=== PATIENT | female | born 2000 | race Caucasian/White ===

== ENCOUNTER 2025-01-11 12:57 | Outpatient (AMB) | payer MEDICAID, SELFPAY ==
[2025-01-11 13:12] VITALS: BP 109/75; PULSE 113; RESP 18; TEMP 36.7; O2SAT 97; BMI 29.9
--- NOTE | 2025-01-11 13:12 | AMB.OBINITIA ---
Vital Signs 01/11/25 13:12 Height 1.65 m Height Method Stated Weight 81.647 kg Weight Measurement Method Standing Scale BMI 29.9 BP 109/75 Blood Pressure Source Automatic Cuff Blood Pressure Location Right Upper Arm Position Sitting Respiration 18 Pulse 113 H Pulse Source Monitor Temp 98.0 F Temp Source Temporal Artery Scan Pulse Oximetry (%) 97 Oxygen Delivery Method Room Air Allergies/Home Meds Allergies & Medications Allergies No Known Allergies Allergy (Verified 01/11/25 13:16) Medication Reconciliation No Known Home Medications 01/11/25 [History Confirmed 01/11/25] Intake Visit Data Collection New Patient or Established: New Patient (never been to [facility]) Reason for Visit:: OBI TRANSFER Seen by Clinical Staff ONLY (RN/MA): No Granular Operator Required: No Do You Feel Safe at Home: Yes Authorities Contacted: N/A PCP or OBGYN visit in last 3 months: No Hx Now: Yes Are you currently on any form of Control: No Pain Present Currently: Yes Pain Location: Back Pain Scale Used: Helms-Eisenberg/Numerical Pain scale:: 5 Smoking Status Smoking Status: Never smoker Immunizations Flu Vaccine in the Last 12 Months: No Flu Vaccine Exclusion Criteria: No Exclusion Criteria Questionnaires Covid-19 Vaccine Questionnaire Has patient been vacinated for Covid-19 Have you been vacinated for Covid-19: No PHQ-9 PHQ-2 Over the last 2 weeks, how often have you been bothered by any of the following problems? 1. Little interest or pleasure in doing things: not at all 2. Feeling down, depressed, or hopeless: not at all Total score: 0 PHQ-9 3. Trouble falling or staying asleep, or sleeping too much: Not at all 4. Feeling tired or having little energy: Not at all 5. Poor appetite or overeating: Not at all 6. Feeling bad about yourself - or that you are a failure or have let yourself or your family down: Not at all 7. Trouble concentrating on things, such as reading the newspaper or watching television: Not at all 8. Moving or speaking so slowly that other people could have noticed? - Or the opposite - being so fidgety or restless that you have been moving around a lot more than usual: not at all 9. Thoughts that you would be better off or of hurting yourself in some way: Not at all Total score: 0 If you checked off any problems, how difficult have these problems made it for you to do your work, take care of things at home, or get along with other people?: not difficult at all Source: Developed by Drs. Umer Mai, Ellen Mckeon, Ray Earl and colleagues, with an educational em from [employer]. Depression screen completed yes Social History Living Situation History Marital Status: Life Partner Lives With: Family Housing: House Tobacco History Smoking Status: Never smoker Second Hand Smoke Exposure: No Alcohol History Alcohol Intake: Never Domestic Abuse History Do You Feel Safe at Home: Yes History of Present Illness HPI Narrative 24-year-old 3 para 2 for OBI. [facility] She [facility]. No LMP. By ultrasound on July 11, 2024 patient was 7 weeks 1 day. Patient was using the Nexplanon when she got . She reports not having any problems with . She is happy about it. O+, antibody screen negative, RPR nonreactive, rubella immune, hepatitis B negative, hep C negative, HIV negative, GC and Chlamydia were negative. Her 1 hour screen negative. Her NIPT and AFP and carrier screens all negative. A1c was 4.7 and drug screen and urine tox were all negative. Patient had another ultrasound at Dr. Valdes's office October 11. She was 28 weeks for and this confirmed EDC of February 26, 2025. Baby was measuring 72nd percentile. OB Initial Visit OB Flowsheet OB Flowsheet Initial Weight: Not Recorded Date <del>?</del> EGA Weight BP Alb Glu CTX Pres Fundal ht FHR Mov Dilation Station Effacement Hx Notes Visit Note 01/11/25 <del>?</del> 33w 3d 81.647 kg 109/75 absent cephalic 33 145 active OB transfer from [facility] with records. Patient is a 24-year-old 3 para 2 at 33-4/7 weeks today. Denies leaking, bleeding, contractions. Reports good movement. She has a follow-up MFM appointment February 05. Follow-up ultrasound with MFM February 05. Discussed labor precautions. GBS next visit. Kick count twice a day. Increase fluids and continue prenatals return 2 weeks OB check Menstrual History Menstrual reliability: unknown OB History : 3 Para: 2 # of Living Children: 2 Delivery History 1st : Child's name: JESSE WESTBROOK date: 08/09/17 sex: female Gestational age at delivery (weeks): 40 Delivery type: vaginal weight (lbs): 4989.516 g History of depression before or after : No 2nd : Child's name: SHE WESTBROOK date: 04/25/19 sex: male Gestational age at delivery (weeks): 40 Delivery type: vaginal weight (lbs): 5443.108 g History of depression before or after : No Infection History & Risk Evaluation History of STDs: none Genetic Screening & History Genetic Screening/Teratology Counseling - Includes patient, baby's father, or anyone in either family with: 1. Patient's age 35 years or older as of estimated date of delivery: No 2. Thalassemia (German, Upper Sorbian, Mediterranean, or Background); MCV less than 80: No 3. Neural Tube Defect (Meningomyelocele, Spina Bifida, or Anencephaly): No 4. Congenital Heart Defect: No 5. Down Syndrome: No 6. Guru-Sachs (Ashkenazi Uatsdin, Cajun, Chinese [employer]): No 7. Sanjay Disease (Ashkenazi Uatsdin): No 8. Familial Dysautonomia (Ashkenazi Uatsdin): No 9. Sickle Cell Disease or Trait (): No 10. Hemophilia or other blood disorders: No 11. Muscular Dystrophy: No 12. Cystic Fibrosis: No 13. Stoneham's Chorea: No 14. Mental Retardation/Autism: No 15. Other inherited genetic or chromosomal disorder: No 16. Maternal Metabolic Disorder (EG,TYPE 1 Diabetes, PKU): No 17. Patient or baby's father had a child with defects not listed above: No 18. Recurrent loss or a stillbirth: No 19. Medications (including supplements, vitamins, herbs or otc drugs)/illicit/recreational drugs/alcohol since last menstrual period: No 20. Any other: No Infection History Other (see comments) Source: [employer] Review of Systems Review of Systems Systems Reviewed: All systems reviewed, normal except as documented Exam General Limitations: no limitations General Appearance: alert, in no apparent distress, comfortable, cooperative, healthy appearing, well developed and well groomed ENT ENT exam: Present normal exam, normal oropharynx and mucous membranes moist Chest Chest inspection: Present normal inspection and symmetric chest wall rise Resp Respiratory exam: Present normal lung sounds bilaterally Card Cardiovascular exam: Present regular rate, normal rhythm and normal heart sounds Abdominal Abdominal exam: Present soft and normal bowel sounds Psych Psychiatric exam: Present normal affect and normal mood Office Procedures OBC Clinic LOC & Office Proc's Nursing/Assessment Patient Status: Initial/New Patient OB Clinic Nursing Assessment: Medication Reconciliation, Update PMH in EMR and Vital Signs OB Clinic Coordination of Care: Complex Care and Chronic Disease 1-5, Education Complex Pt/Fam, Consent,records obtained, informed consent, Lab and Imaging orders, Results/Orders obtained and Staff clarify orders Special Needs: Heart tones New Patient Charge New Patient Point Assignment: [id number] New Patient Point Charge: POWER MULE OPERATOR Level 4 ([id number]) Assessment & Plan Diagnosis / Problem List (1) Encounter for supervision of high risk in third trimester, antepartum: Status: Acute Plan Follow-up with maternal- medicine 02/05/25, discussed labor precautions. Continue prenatals. ER precautions. Return in 2 weeks GBS Additional Plan Follow Up: 2 Weeks (gbs)
== END 2025-01-11 13:26 | disposition home or self-care (01) ==
LOC: HODSOBC 12:57
PROVIDERS: Supervising Provider Advanced Practice Midwife; Visit Provider Advanced Practice Midwife
DX: O09.93 Supervision of high risk pregnancy, unspecified, third trimester (principal); Z3A.33 33 weeks gestation of pregnancy
CPT/HCPCS: 99204; G0463

== ENCOUNTER 2025-01-23 15:11 | Outpatient (AMB) | payer MEDICAID, SELFPAY ==
[2025-01-23 15:20] VITALS: BP 119/78; PULSE 106; RESP 20; TEMP 36.5; O2SAT 97; BMI 29.9
--- NOTE | 2025-01-23 15:20 | AMB.OBPNC ---
Vital Signs 01/23/25 15:20 Height 1.65 m Height Method Stated Weight 81.363 kg Weight Measurement Method Standing Scale BMI 29.9 BP 119/78 Blood Pressure Source Automatic Cuff Blood Pressure Location Left Upper Arm Position Sitting Respiration 20 Pulse 106 H Pulse Source Monitor Temp 97.7 F Temp Source Oral Pulse Oximetry (%) 97 Oxygen Delivery Method Room Air Allergies/Home Meds Allergies & Medications Allergies No Known Allergies Allergy (Verified 01/23/25 15:21) Medication Reconciliation vitamins-iron fumarate 66 mg iron-folic acid 1 mg tablet tab PO 01/23/25 [History Confirmed 01/23/25] Immunizations Immunizations Flu Vaccine in the Last 12 Months: Yes Flu Vaccine Exclusion Criteria: Already Received Care OB Visit Log OB Flowsheet Initial Weight: Not Recorded Date <del>?</del> EGA Weight BP Alb Glu CTX Pres Fundal ht FHR Mov Dilation Station Effacement Hx Notes Visit Note 01/11/25 <del>?</del> 33w 3d 81.647 kg 109/75 absent cephalic 33 145 active OB transfer from [facility] with records. Patient is a 24-year-old 3 para 2 at 33-4/7 weeks today. Denies leaking, bleeding, contractions. Reports good movement. She has a follow-up MFM appointment February 05. Follow-up ultrasound with [facility] February 05. Discussed labor precautions. GBS next visit. Kick count twice a day. Increase fluids and continue prenatals return 2 weeks OB check 01/23/25 <del>?</del> 35w 1d 81.363 kg 119/78 absent cephalic 34 140 active Reports good movement. Denies leaking or bleeding. Occasional contraction and pressure. No other OB complaints GBS today. Discussed labor precautions. Kick count twice a day. Return in week OB check LAURENT Calculator Estimated Delivery Date Method Current WG Current Estimate 02/26/25 Ultrasound #1 35w 1d Other Estimates 02/15/25 LMP (Uncertain) 36w 5d 02/26/25 Ultrasound #2 35w 1d 02/26/25 Manual 35w 1d final laurent: 02/26/25 Notes Visit Date: 01/11/25 Last Updated by: Estella Renteria CNM sono1: IUP 28w4, 72% Office Procedures OBC Clinic LOC & Office Proc's Nursing/Assessment Patient Status: Established Patient OB Clinic Nursing Assessment: Medication Reconciliation, Update PMH in EMR and Vital Signs OB Clinic Coordination of Care: Complex Care and Chronic Disease 1-5, Consent,records obtained, informed consent, Education Simp Pt/Fam, 1 Ins Authorization, Lab and Imaging orders, Results/Orders obtained and Staff clarify orders Special Needs: Heart tones Miscellaneous Interventions: Culture Specimen Collection Established Patient Charge Established Patient Point Assignment: 165 Established Patient Point Charge: EP Level 5 (160-above) Assessment & Plan Diagnosis / Problem List (1) Encounter for supervision of high risk in third trimester, antepartum: Status: Acute Plan gbs today. labor precaution, fkc bid. review danger s/s and ER precaution. rtc 2 week Additional Plan Follow Up: 2 Weeks (obc)
== END 2025-01-23 15:36 | disposition home or self-care (01) ==
LOC: HODSOBC 15:11
PROVIDERS: Supervising Provider Advanced Practice Midwife; Visit Provider Advanced Practice Midwife
DX: O09.893 Supervision of other high risk pregnancies, third trimester (principal); O47.03 False labor before 37 completed weeks of gestation, third trimester; Z36.85 Encounter for antenatal screening for Streptococcus B; Z3A.35 35 weeks gestation of pregnancy
CPT/HCPCS: 99215; G0463